=== PATIENT | male | born 1945 | race Asian ===

== ENCOUNTER 2017-09-13 06:32 | Emergency (ER) | payer OTHER ==
[~2017-09-13] VITALS: Ht 175.3 cm; Wt 88.5 kg
[2017-09-13 07:48] LABS: microscopic required? YES; urine erythrocyte TRACE (NEGATIVE)
[2017-09-13 08:11] VITALS: BP 131/83
== END 2017-09-13 08:11 | disposition home or self-care (01) ==
LOC: ED 06:32
PROVIDERS: Specialist
DX: R33.9 Retention of urine, unspecified (principal); I10 Essential (primary) hypertension